=== PATIENT | female | born 1930 | race Caucasian/White ===

== ENCOUNTER 2019-09-14 11:50 | Inpatient (IN) | payer MEDICARE, OTHER ==
--- NOTE | 2019-09-14 12:12 | EDM.PDOC ---
ED HPI GENERAL MEDICAL PROBLEM - General Chief Complaint: Lower Extremity Injury/Pain Stated Complaint: [facility] Time Seen by Provider: 09/14/19 11:53 Source of Information: Reports: Patient History Limitations: Reports: No Limitations - History of Present Illness INITIAL COMMENTS - FREE TEXT/NARRATIVE: Patient is an 89-year-old female brought in by [facility] for right hip pain after a fall. Patient states that she was ambulating from one room to another and fell. She states she did hit her head. Initially she was able to walk on the extremity per group home report, however she shortly thereafter began to complain of severe right hip pain. She denies a loss of consciousness. She has had no previous orthopedic surgeries on that hip. Patient is not on a blood thinner. Right Hip Pain Score (Numeric/FACES): 10 Lower Back Pain Score (Numeric/FACES): 8 - Related Data Allergies Allergy/AdvReac Type Severity Reaction Status Date / Time No Known Allergies Allergy Verified 09/14/19 15:16 Home Meds: Home Meds Metoprolol Tartrate 50 mg PO BID 07/24/14 [History] Sertraline [Zoloft] 50 mg PO DAILY 07/24/14 [History] Mag Hydrox/Aluminum Hyd/Simeth [Antacid Liquid] 20 ml PO Q4H PRN 09/14/19 [ History] Melatonin 3 mg PO BEDTIME PRN 09/14/19 [History] amLODIPine [Norvasc] 5 mg PO DAILY 09/14/19 [History] Past Medical History HEENT History: Reports: Hard of Hearing Cardiovascular History: Reports: High Cholesterol, Hypertension Other Cardiovascular History: L BBB Gastrointestinal History: Reports: GERD Genitourinary History: Reports: Chronic Renal Insuffiency Psychiatric History: Reports: Dementia, Depression - Past Surgical History GI Surgical History: Reports: Other (See Below) Other Female Surgeries/Procedures: urostomy Social & Family History - Tobacco Use Smoking Status *Q: Unknown Ever Smoked Second Hand Smoke Exposure: No - Caffeine Use Caffeine Use: Reports: Coffee, Soda - Recreational Drug Use Recreational Drug Use: No Review of Systems - Review of Systems Review Of Systems: Comprehensive ROS is negative, except as noted in HPI. ED EXAM, GENERAL - Physical Exam Exam: See Below Exam Limited By: No Limitations General Appearance: Alert, WD/WN, No Apparent Distress Ears: Other (very heard of hearing.) Respiratory/Chest: No Respiratory Distress, Lungs Clear, Normal Breath Sounds, No Accessory Muscle Use, Chest Non-Tender Cardiovascular: Normal Peripheral Pulses, Regular Rate, Rhythm, No Edema, No Gallop, No JVD, No Murmur, No Rub (Female) Exam: Other (Urostomy right abdomen) Extremities: No Pedal Edema, Normal Capillary Refill, Other (Tenderness to palpation over the posterior right hip. No obvious deformity. No limb shortening or external rotation. No obvious ecchymosis. Range of motion limited due to pain.) Neurological: Alert, Oriented, CN II-XII Intact, Normal Cognition, No Motor/ Sensory Deficits Psychiatric: Normal Affect, Normal Mood Skin Exam: Warm, Dry, Intact, Normal Color, No Rash Course - Vital Signs Last Recorded V/S: Last Vital Signs Temp 97.5 F 09/14/19 20:20 Pulse 69 09/14/19 20:20 Resp 18 09/14/19 20:20 BP 127/73 09/14/19 20:20 Pulse Ox 92 L 09/14/19 20:20 - Orders/Labs/Meds Orders: Active Orders 24 hr Category Date Time Status Hip Min 2V or 3V w Pelvis Rt [CR] Stat Exams 09/14/19 12:07 Taken Hip wo Cont Rt [CT] Stat Exams 09/14/19 13:03 Taken Medication Orders Acetaminophen (Tylenol) 650 mg PO Q4H PRN PRN Reason: Pain (Mild 1-3)/fever Hydrocodone Bitart/Acetaminophen ([place] 325-5 Mg) 1 tab PO Q4H PRN PRN Reason: Pain (moderate 4-6) Last Admin: 09/14/19 16:57 Dose: 1 tab Enoxaparin Sodium (Lovenox) 30 mg SUBCUT DAILY MARK Hydromorphone HCl (Dilaudid) 0.25 mg IVPUSH Q2H PRN PRN Reason: Pain (severe 7-10) Ondansetron HCl (Zofran Odt) 4 mg PO Q4H PRN PRN Reason: nausea, able to take PO Senna/Docusate Sodium (Senna Plus) 1 tab PO BID PRN PRN Reason: Constipation Labs: Laboratory Tests 09/14/19 09/14/19 Range/Units 12:35 12:35 WBC 9.66 (3.98-10.04) K/mm3 RBC 4.83 (3.98-5.22) M/mm3 Hgb 15.3 (11.2-15.7) gm/dl Hct 46.7 H (34.1-44.9) % MCV 96.7 H D (79.4-94.8) fl MCH 31.7 (25.6-32.2) pg MCHC 32.8 (32.2-35.5) g/dl RDW Std Deviation 47.8 H (36.4-46.3) fL Plt Count 240 D (182-369) K/mm3 MPV 9.1 L (9.4-12.3) fl Neut % (Auto) 65.6 (34.0-71.1) % Lymph % (Auto) 14.4 L (19.3-51.7) % [place] % (Auto) 13.1 H (4.7-12.5) % Eos % (Auto) 6.3 H (0.7-5.8) Baso % (Auto) 0.4 (0.1-1.2) % Neut # (Auto) 6.33 H (1.56-6.13) K/mm3 Lymph # (Auto) 1.39 (1.18-3.74) K/mm3 [place] # (Auto) 1.27 H (0.24-0.36) K/mm3 Eos # (Auto) 0.61 H (0.04-0.36) K/mm3 Baso # (Auto) 0.04 (0.01-0.08) K/mm3 Sodium 141 (136-145) mEq/L Potassium 3.9 (3.5-5.1) mEq/L Chloride 105 (98-107) mEq/L Carbon Dioxide 25 (21-32) mEq/L Anion Gap 14.9 (5-15) BUN 23 H (7-18) mg/dL Creatinine 1.3 H (0.55-1.02) mg/dL Est Cr Clr Drug Dosing 25.83 mL/min Estimated GFR (MDRD) 39 (>60) mL/min BUN/Creatinine Ratio 17.7 (14-18) Glucose 91 (83-115) mg/dL Calcium 9.4 (8.5-10.1) mg/dL Total Bilirubin 0.4 (0.2-1.0) mg/dL AST 17 (15-37) U/L ALT 15 (14-59) U/L Alkaline Phosphatase 112 (46-116) U/L Total Protein 7.0 (6.4-8.2) g/dl Albumin 3.1 L (3.4-5.0) g/dl Globulin 3.9 gm/dL Albumin/Globulin Ratio 0.8 L (1-2) Meds: Medications Generic Name Dose Route Start Last Admin Trade Name Freq PRN Reason Stop Dose Admin Acetaminophen 650 mg 09/14/19 15:43 Tylenol PO Q4H PRN Pain (Mild 1-3)/fever Hydrocodone Bitart/Acetaminophen 1 tab 09/14/19 15:43 09/14/19 16:57 [place] 325-5 Mg PO 1 tab Q4H PRN Administration Pain (moderate 4-6) Enoxaparin Sodium 30 mg 09/15/19 09:00 Lovenox SUBCUT DAILY MARK Hydromorphone HCl 0.25 mg 09/14/19 15:43 Dilaudid IVPUSH Q2H PRN Pain (severe 7-10) Ondansetron HCl 4 mg 09/14/19 15:43 Zofran Odt PO Q4H PRN nausea, able to take PO Senna/Docusate Sodium 1 tab 09/14/19 15:43 Senna Plus PO BID PRN Constipation Discontinued Medications Generic Name Dose Route Start Last Admin Trade Name Frepatrice PRN Reason Stop Dose Admin Acetaminophen 650 mg 09/14/19 14:29 09/14/19 14:44 Tylenol PO 09/14/19 14:30 650 mg NOW ONE Administration Hydromorphone HCl 0.25 mg 09/14/19 13:51 09/14/19 14:00 Dilaudid IVPUSH 09/14/19 13:52 0.25 mg ONETIME ONE Administration - Re-Assessments/Exams Free Text/Narrative Re-Assessment/Exam: 09/14/19 14:25 CT of the head was negative for any acute changes. CT of the right hip showed degenerative changes, as well as mildly displaced and comminuted fracture within the right inferior pubic ramus. Additionally there is a minimally nondisplaced fracture suggested to the right superior pubic ramus near the acetabulum. CT was reviewed by Dr. Watson and myself we are questioning a possible slightly impacted right femoral neck fracture. Called [facility] and spoke with the on-call orthopedist, Dr. Al. He reviewed the CT images and stated these are stable fractures which required no surgical intervention. He verbalized that he did not see any suggestion of a impacted femoral neck fracture and attributed what we were seeing to bone spurs and osteophytes. He verbalized that she may be weightbearing as tolerated with pain management and PT OT. Called and spoke with the hospitalist, Dr. Maldonado. He will admit the patient for pain control and PT OT eval. Departure - Departure Time of Disposition: 14:25 Disposition: Admitted As Inpatient 67 Condition: Fair Clinical Impression: Pelvic fracture Qualifiers: Encounter type: initial encounter Pelvic bone location: other part of pelvis Fracture type: closed Qualified Code(s): S32.89XA - Fracture of other parts of pelvis, initial encounter for closed fracture - Discharge Information Sepsis Event Note - Evaluation Sepsis Screening Result: No Definite Risk - Focused Exam Vital Signs: Vital Signs Temp Pulse Resp BP Pulse Ox 09/14/19 11:56 99.6 F 61 17 191/79 H 91 L Date Exam was Performed: 09/14/19 Time Exam was Performed: 20:40 - My Orders Last 24 Hours: My Active Orders 09/14/19 12:07 Hip Min 2V or 3V w Pelvis Rt [CR] Stat 09/14/19 13:03 Hip wo Cont Rt [CT] Stat - Assessment/Plan Last 24 Hours: My Active Orders 09/14/19 12:07 Hip Min 2V or 3V w Pelvis Rt [CR] Stat 09/14/19 13:03 Hip wo Cont Rt [CT] Stat
--- NOTE | 2019-09-14 13:22 | CT ---
Head CT Technique: Multiple axial sections through the brain were obtained. Intravenous contrast was not utilized. Comparison: No prior intracranial imaging is available. Findings: Ventricles along with basal cisterns and sulci over the convexities are mildly prominent. Mild diminished density is noted within the periventricular white matter which is most likely due to small vessel ischemic demyelination change. No other abnormal parenchymal densities are seen. No evidence of intracranial hemorrhage. No midline shift or mass-effect is seen. Bone window settings were reviewed. No acute calvarial finding is seen. Hypoplastic left maxillary sinus is noted containing minimal mucosal thickening. Impression: 1. 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 2. Senescent change as noted above. 3. Nothing acute is appreciated. Diagnostic code #2 This report was dictated in MDT
[2019-09-14] MEDS ORDERED: HYDROmorphone 0.5 MG/0.5 ML Syringe IVPUSH ONE (13:51)
[2019-09-14] MEDS ORDERED: Acetaminophen 325 MG Tab PO ONE (14:29)
[2019-09-14] MEDS ORDERED: Ondansetron 4 MG Tab.DIS PO PRN (15:43)
[2019-09-14] MEDS ORDERED: Acetaminophen 325 MG Tab PO PRN (15:43)
[2019-09-14] MEDS ORDERED: HYDROmorphone 0.5 MG/0.5 ML Syringe IVPUSH PRN (15:43)
--- NOTE | 2019-09-14 15:53 | PCM.HP.2 ---
H&P History of Present Illness - General Date of Service: 09/14/19 Admit Problem/Dx: Admission Diagnosis/Problem Admission Diagnosis/Problem Fracture of pelvis - History of Present Illness Initial Comments - Free Text/Narative: 89-year-old female with history of severe hearing loss, hypertension, hyperlipidemia, left bundle branch block, GERD, chronic renal sufficiency, dementia, and depression was brought in from [facility] by ambulance after sustaining a fall this morning. Patient is extremely hard of hearing, therefore history was obtained through emergency department notes. Apparently patient was initially able to walk after the fall. She then started to complain of severe right hip pain. Patient also did hit her head during the fall. There was no loss of consciousness and she is not on any anticoagulation. In the emergency department pain was noted to be severe, [address] of the pelvis showed right hip with degenerative changes, mildly displaced and comminuted fracture within the right inferior pubic ramus, and minimally nondisplaced fracture suggested to the right superior pubic ramus. Emergency department called the on-call orthopedic surgeon, Dr. Al, who stated that these are stable fractures and she can proceed with weightbearing as tolerated, pain management, and PT/OT. Right Hip Pain Score (Numeric/FACES): 10 - Related Data Allergies/Adverse Reactions: Allergies Allergy/AdvReac Type Severity Reaction Status Date / Time No Known Allergies Allergy Verified 09/14/19 15:16 Home Medications: Home Meds Metoprolol Tartrate 50 mg PO BID 07/24/14 [History] Sertraline [Zoloft] 50 mg PO DAILY 07/24/14 [History] Mag Hydrox/Aluminum Hyd/Simeth [Antacid Liquid] 20 ml PO Q4H PRN 09/14/19 [ History] Melatonin 3 mg PO BEDTIME PRN 09/14/19 [History] amLODIPine [Norvasc] 5 mg PO DAILY 09/14/19 [History] Past Medical History HEENT History: Reports: Allergic Rhinitis, Hard of Hearing Cardiovascular History: Reports: High Cholesterol, Hypertension, Other (See Below) Other Cardiovascular History: left bundle branch block Respiratory History: Reports: Other (See Below) Other Respiratory History: hypoxemia Gastrointestinal History: Reports: GERD Genitourinary History: Reports: Chronic Renal Insuffiency, Urostomy, UTI, Recurrent Musculoskeletal History: Reports: Back Pain, Chronic, Other (See Below) Other Musculoskeletal History: weakness; current pelvic fracture Psychiatric History: Reports: Dementia, Depression, Other (See Below) Other Psychiatric History: insomnia Dermatologic History: Reports: Other (See Below) Other Dermatologic History: pruritic disorder - Past Surgical History GI Surgical History: Reports: Other (See Below) Other Female Surgeries/Procedures: urostomy Social & Family History - Family History Family Medical History: Noncontributory - Tobacco Use Smoking Status *Q: Never Smoker Second Hand Smoke Exposure: No - Caffeine Use Caffeine Use: Reports: None - Recreational Drug Use Recreational Drug Use: No H&P Review of Systems - Review of Systems: Review Of Systems: Unable To Obtain Reason Not Obtained: Severely hard of hearing Exam - Exam Exam: See Below - Vital Signs Vital Signs: Last Vital Signs Temp 99.6 F 09/14/19 11:56 Pulse 61 09/14/19 11:56 Resp 17 09/14/19 11:56 BP 191/79 H 09/14/19 11:56 Pulse Ox 91 L 09/14/19 11:56 Weight: 163 lb 9.6 oz - Exam Quality Assessment: No: Supplemental Oxygen General: Alert, Oriented, 4 HEENT: Conjunctiva Clear, Mucosa Moist & [place], Normal Nasal Septum. No: Hearing Intact Neck: Supple, Trachea Midline, 2 Lungs: Clear to Auscultation, Normal Respiratory Effort Cardiovascular: Regular Rate, Regular Rhythm GI/Abdominal Exam: Normal Bowel Sounds, Soft, Non-Tender, No Organomegaly, No Distention, No Abnormal Bruit, No Mass, Pelvis Stable Back Exam: Normal Inspection, Full Range of Motion, NT Extremities: Normal Inspection, Normal Capillary Refill, Pedal Edema (1+ bilateral pitting edema to the feet and ankles) Skin: Warm, Dry, Intact Neuro Extensive - Mental Status: Alert, Oriented x3, Normal Mood/Affect, Normal Cognition Neuro Extensive - Motor, Sensory, Reflexes: No: Normal Gait Psychiatric: Alert, Normal Affect, Normal Mood - Patient Data Lab Results Last 24 hrs: Laboratory Results - last 24 hr 09/14/19 09/14/19 Range/Units 12:35 12:35 WBC 9.66 (3.98-10.04) K/mm3 RBC 4.83 (3.98-5.22) M/mm3 Hgb 15.3 (11.2-15.7) gm/dl Hct 46.7 H (34.1-44.9) % MCV 96.7 H D (79.4-94.8) fl MCH 31.7 (25.6-32.2) pg MCHC 32.8 (32.2-35.5) g/dl RDW Std Deviation 47.8 H (36.4-46.3) fL Plt Count 240 D (182-369) K/mm3 MPV 9.1 L (9.4-12.3) fl Neut % (Auto) 65.6 (34.0-71.1) % Lymph % (Auto) 14.4 L (19.3-51.7) % [place] % (Auto) 13.1 H (4.7-12.5) % Eos % (Auto) 6.3 H (0.7-5.8) Baso % (Auto) 0.4 (0.1-1.2) % Neut # (Auto) 6.33 H (1.56-6.13) K/mm3 Lymph # (Auto) 1.39 (1.18-3.74) K/mm3 [place] # (Auto) 1.27 H (0.24-0.36) K/mm3 Eos # (Auto) 0.61 H (0.04-0.36) K/mm3 Baso # (Auto) 0.04 (0.01-0.08) K/mm3 Sodium 141 (136-145) mEq/L Potassium 3.9 (3.5-5.1) mEq/L Chloride 105 (98-107) mEq/L Carbon Dioxide 25 (21-32) mEq/L Anion Gap 14.9 (5-15) BUN 23 H (7-18) mg/dL Creatinine 1.3 H (0.55-1.02) mg/dL Est Cr Clr Drug Dosing 25.83 mL/min Estimated GFR (MDRD) 39 (>60) mL/min BUN/Creatinine Ratio 17.7 (14-18) Glucose 91 (83-115) mg/dL Calcium 9.4 (8.5-10.1) mg/dL Total Bilirubin 0.4 (0.2-1.0) mg/dL AST 17 (15-37) U/L ALT 15 (14-59) U/L Alkaline Phosphatase 112 (46-116) U/L Total Protein 7.0 (6.4-8.2) g/dl Albumin 3.1 L (3.4-5.0) g/dl Globulin 3.9 gm/dL Albumin/Globulin Ratio 0.8 L (1-2) Result Diagrams: 09/14/19 12:35 09/14/19 12:35 Sepsis Event Note - Evaluation Sepsis Screening Result: No Definite Risk - Focused Exam Vital Signs: Vital Signs Temp Pulse Resp BP Pulse Ox 09/14/19 11:56 99.6 F 61 17 191/79 H 91 L Date Exam was Performed: 09/14/19 Time Exam was Performed: 15:48 Problem List Initiated/Reviewed/Updated: Yes Orders Last 24hrs: Active Orders 24 hr Category Date Time Status Patient Status [ADT] Routine ADT 09/14/19 14:30 Active Oxygen Therapy [RC] PRN Care 09/14/19 15:43 Ordered Up With Assistance [RC] ASDIRECTED Care 09/14/19 15:43 Ordered VTE/DVT Education [RC] PER UNIT ROUTINE Care 09/14/19 15:43 Ordered Vital Signs [RC] Q4H Care 09/14/19 15:43 Ordered OT Evaluation and Treatment [CONS] Routine Cons 09/14/19 15:47 Ordered PT Evaluation and Treatment [CONS] Routine Cons 09/14/19 15:47 Ordered Regular Diet [DIET] Diet 09/14/19 Dinner Ordered Hip Min 2V or 3V w Pelvis Rt [CR] Stat Exams 09/14/19 12:07 Taken Hip wo Cont Rt [CT] Stat Exams 09/14/19 13:03 Taken METH-RESIST S.AUR,MRSA BY PCR [MOLEC] Routine Lab 09/14/19 15:15 Received Acetaminophen [Tylenol] Med 09/14/19 15:43 Ordered 650 mg PO Q4H PRN Acetaminophen/HYDROcodone [[place] 325-5 MG] Med 09/14/19 15:43 Ordered 1 tab PO Q4H PRN Docusate Sodium/Sennosides [Senna Plus] Med 09/14/19 15:43 Ordered 1 tab PO BID PRN Enoxaparin [Lovenox] Med 09/15/19 09:00 Ordered 40 mg SUBCUT DAILY HYDROmorphone [Dilaudid] Med 09/14/19 15:43 Ordered 0.25 mg IVPUSH Q2H PRN Ondansetron [Zofran ODT] Med 09/14/19 15:43 Ordered 4 mg PO Q4H PRN Resuscitation Status Routine Resus Stat 09/14/19 15:43 Ordered Medication Orders Acetaminophen (Tylenol) 650 mg PO Q4H PRN PRN Reason: Pain (Mild 1-3)/fever Hydrocodone Bitart/Acetaminophen ([place] 325-5 Mg) 1 tab PO Q4H PRN PRN Reason: Pain (moderate 4-6) Enoxaparin Sodium (Lovenox) 40 mg SUBCUT DAILY MARK Hydromorphone HCl (Dilaudid) 0.25 mg IVPUSH Q2H PRN PRN Reason: Pain (severe 7-10) Ondansetron HCl (Zofran Odt) 4 mg PO Q4H PRN PRN Reason: nausea, able to take PO Senna/Docusate Sodium (Senna Plus) 1 tab PO BID PRN PRN Reason: Constipation Assessment/Plan Comment:: Stable pelvic fracture * CT confirmed: Mildly displaced and comminuted fracture within the right inferior pubic ramus. Minimally nondisplaced fracture suggested to the right superior pubic ramus near the acetabulum. * On-call orthopedist, Dr. Al, recommended weightbearing as tolerated, pain management, PT and OT Plan * weightbearing as tolerated, pain management, PT and OT * Tylenol, [place], Dilaudid for pain. Stage III chronic renal insufficiency * Estimated GFR 39 * BUN 23, creatinine 1.3 which is stable over several years Plan * Avoid nephrotoxic medications especially NSAIDs * Restart home blood pressure medications Hypertension * Initial blood pressure 191/79 likely worsened by pain * Home meds include amlodipine 5 mg daily and metoprolol tartrate 50 mg twice daily Plan * Continue home meds Depression/dementia/insomnia * Patient is very hard of hearing which is likely worsening the above. * She is on sertraline at home. Plan * Continue sertraline 50 mg daily * Continue melatonin 3 mg nightly Severe hearing loss * Use whiteboard as needed. VTE prophylaxis with Lovenox CODE STATUS: Full code Disposition: Admit to floor. We do not have physical therapy available until Monday, therefore length of stay will be 3 to 4 days. - Mortality Measure Prognosis:: Good
[2019-09-14] MEDS: Acetaminophen/HYDROcodone 325-5 MG Tab PO PRN (16:57)
[2019-09-14] MEDS ORDERED: Melatonin 3 MG Tab PO PRN (22:11)
[2019-09-14] MEDS ORDERED: Aluminum Hydroxide/Magnesium Hydroxide/Simethicone Susp 30 ML Cup PO PRN (22:19)
[2019-09-14] MEDS: Metoprolol Tartrate 50 MG Tab PO SCH (22:24)
[2019-09-14] MEDS: Loratadine 10 MG Tab PO SCH (22:24)
--- NOTE | 2019-09-15 07:23 | CT ---
CT right hip Technique: Multiple axial sections through the right hip were obtained. Reconstructed coronal and sagittal images were obtained. Findings: Joint space narrowing is noted within the right hip. Osteophytes are noted off the right femoral neck. Vacuum phenomena is noted within the right sacroiliac joint. Mildly displaced and slightly comminuted inferior right pubic ramus fracture is noted. Nondisplaced fracture is also suspected within the superior pubic ramus near the acetabulum. Degenerative spurring is noted within the pubic symphysis. Impression: 1. Degenerative change within the right hip. 2. Mildly displaced and comminuted fracture within the inferior right pubic ramus. Minimal nondisplaced fracture suggested to the superior right pubic ramus near the acetabulum. 3. Other degenerative change as noted above. Diagnostic code #3 This report was dictated in MDT MTDD
[2019-09-15] MEDS: Enoxaparin 30 MG/0.3 ML Syringe SUBCUT SCH (08:37)
[2019-09-15] MEDS: Acetaminophen/HYDROcodone 325-5 MG Tab PO PRN ×2 (08:39→17:24)
[2019-09-15] MEDS: Metoprolol Tartrate 50 MG Tab PO SCH ×2 (08:40→20:44)
[2019-09-15] MEDS: amLODIPine 5 MG Tab PO SCH (08:40)
[2019-09-15] MEDS: Sertraline 50 MG Tab PO SCH (08:40)
--- NOTE | 2019-09-15 09:37 | PCM.PN ---
- General Info Date of Service: 09/15/19 Admission Dx/Problem (Free Text): Admission Diagnosis/Problem Admission Diagnosis/Problem Fracture of pelvis Subjective Update: Patient continues to have pelvic and right hip pain. Physical therapy is scheduled for today. Functional Status: Denies: Pain Controlled - Review of Systems General: Reports: No Symptoms HEENT: Reports: No Symptoms Pulmonary: Reports: No Symptoms Cardiovascular: Reports: No Symptoms Gastrointestinal: Reports: No Symptoms Genitourinary: Reports: No Symptoms Musculoskeletal: Reports: Back Pain, Other (Pelvic pain) Neurological: Reports: No Symptoms - Patient Data Vitals - Most Recent: Last Vital Signs Temp 97.3 F 09/15/19 07:51 Pulse 58 L 09/15/19 08:40 Resp 20 09/15/19 07:51 BP 137/49 L 09/15/19 08:40 Pulse Ox 96 09/15/19 07:51 Weight - Most Recent: 164 lb 8 oz I&O - Last 24 Hours: Intake & Output 09/14/19 09/15/19 09/15/19 22:59 06:59 14:59 Intake Total 100 Output Total 450 Balance -350 Lab Results Last 24 Hours: Laboratory Results - last 24 hr 09/14/19 09/14/19 09/14/19 Range/Units 12:35 12:35 15:15 WBC 9.66 (3.98-10.04) K/mm3 RBC 4.83 (3.98-5.22) M/mm3 Hgb 15.3 (11.2-15.7) gm/dl Hct 46.7 H (34.1-44.9) % MCV 96.7 H D (79.4-94.8) fl MCH 31.7 (25.6-32.2) pg MCHC 32.8 (32.2-35.5) g/dl RDW Std Deviation 47.8 H (36.4-46.3) fL Plt Count 240 D (182-369) K/mm3 MPV 9.1 L (9.4-12.3) fl Neut % (Auto) 65.6 (34.0-71.1) % Lymph % (Auto) 14.4 L (19.3-51.7) % [place] % (Auto) 13.1 H (4.7-12.5) % Eos % (Auto) 6.3 H (0.7-5.8) Baso % (Auto) 0.4 (0.1-1.2) % Neut # (Auto) 6.33 H (1.56-6.13) K/mm3 Lymph # (Auto) 1.39 (1.18-3.74) K/mm3 [place] # (Auto) 1.27 H (0.24-0.36) K/mm3 Eos # (Auto) 0.61 H (0.04-0.36) K/mm3 Baso # (Auto) 0.04 (0.01-0.08) K/mm3 Sodium 141 (136-145) mEq/L Potassium 3.9 (3.5-5.1) mEq/L Chloride 105 (98-107) mEq/L Carbon Dioxide 25 (21-32) mEq/L Anion Gap 14.9 (5-15) BUN 23 H (7-18) mg/dL Creatinine 1.3 H (0.55-1.02) mg/dL Est Cr Clr Drug Dosing 25.83 mL/min Estimated GFR (MDRD) 39 (>60) mL/min BUN/Creatinine Ratio 17.7 (14-18) Glucose 91 (83-115) mg/dL Calcium 9.4 (8.5-10.1) mg/dL Total Bilirubin 0.4 (0.2-1.0) mg/dL AST 17 (15-37) U/L ALT 15 (14-59) U/L Alkaline Phosphatase 112 (46-116) U/L Total Protein 7.0 (6.4-8.2) g/dl Albumin 3.1 L (3.4-5.0) g/dl Globulin 3.9 gm/dL Albumin/Globulin Ratio 0.8 L (1-2) MRSA (PCR) Negative Med Orders - Current: Current Medications Acetaminophen (Tylenol) 650 mg PO Q4H PRN PRN Reason: Pain (Mild 1-3)/fever Hydrocodone Bitart/Acetaminophen ([place] 325-5 Mg) 1 tab PO Q4H PRN PRN Reason: Pain (moderate 4-6) Last Admin: 09/15/19 08:39 Dose: 1 tab Al Hydroxide/Mg Hydroxide (Mag-Al Plus) 20 ml PO Q4H PRN PRN Reason: Heartburn Amlodipine Besylate (Norvasc) 5 mg PO DAILY [facility] Last Admin: 09/15/19 08:40 Dose: 5 mg Enoxaparin Sodium (Lovenox) 30 mg SUBCUT DAILY [facility] Last Admin: 09/15/19 08:37 Dose: 30 mg Hydromorphone HCl (Dilaudid) 0.25 mg IVPUSH Q2H PRN PRN Reason: Pain (severe 7-10) Loratadine (Claritin) 10 mg PO BEDTIME [facility] Last Admin: 09/14/19 22:24 Dose: 10 mg Melatonin (Melatonin) 3 mg PO BEDTIME PRN PRN Reason: Insomnia Metoprolol Tartrate (Lopressor) 50 mg PO BID [facility] Last Admin: 09/15/19 08:40 Dose: 50 mg Ondansetron HCl (Zofran Odt) 4 mg PO Q4H PRN PRN Reason: nausea, able to take PO Senna/Docusate Sodium (Senna Plus) 1 tab PO BID PRN PRN Reason: Constipation Sertraline HCl (Zoloft) 50 mg PO DAILY [facility] Last Admin: 09/15/19 08:40 Dose: 50 mg Discontinued Medications Acetaminophen (Tylenol) 650 mg PO NOW ONE Stop: 09/14/19 14:30 Last Admin: 09/14/19 14:44 Dose: 650 mg Hydromorphone HCl (Dilaudid) 0.25 mg IVPUSH ONETIME ONE Stop: 09/14/19 13:52 Last Admin: 09/14/19 14:00 Dose: 0.25 mg - Exam General: Alert, Oriented HEENT: Pupils Equal, Mucous Membr. Moist/[place] Neck: Supple Lungs: Clear to Auscultation, Normal Respiratory Effort Cardiovascular: Regular Rate, Regular Rhythm GI/Abdominal Exam: Normal Bowel Sounds, Soft, Non-Tender, No Organomegaly, No Distention, No Abnormal Bruit, No Mass Extremities: Normal Inspection, Non-Tender, No Pedal Edema Peripheral Pulses: 1+: Posterior Tibial (L), Posterior Tibial (R), Dorsalis Pedis (L), Dorsalis Pedis (R) Skin: Warm, Dry, Intact Psy/Mental Status: Alert, Normal Affect, Normal Mood Sepsis Event Note - Evaluation Sepsis Screening Result: No Definite Risk - Focused Exam Vital Signs: Vital Signs Temp Pulse Resp BP Pulse Ox 09/15/19 08:40 58 L 137/49 L 09/15/19 07:51 97.3 F 58 L 20 96 09/15/19 05:06 177/61 H 09/15/19 04:11 97.9 F 63 18 182/96 H 95 09/14/19 22:29 60 148/55 H 92 L 09/14/19 22:24 61 148/55 H Date Exam was Performed: 09/15/19 Time Exam was Performed: 09:32 - Problem List Review Problem List Initiated/Reviewed/Updated: Yes - My Orders Last 24 Hours: My Active Orders 09/14/19 15:43 Oxygen Therapy [RC] PRN Up With Assistance [RC] BID VTE/DVT Education [RC] DAILY Vital Signs [RC] Q4HR Acetaminophen [Tylenol] 650 mg PO Q4H PRN Acetaminophen/HYDROcodone [[place] 325-5 MG] 1 tab PO Q4H PRN Docusate Sodium/Sennosides [Senna Plus] 1 tab PO BID PRN HYDROmorphone [Dilaudid] 0.25 mg IVPUSH Q2H PRN Ondansetron [Zofran ODT] 4 mg PO Q4H PRN Resuscitation Status Routine 09/14/19 15:47 OT Evaluation and Treatment [CONS] Routine PT Evaluation and Treatment [CONS] Routine 09/14/19 21:00 Loratadine [Claritin] 10 mg PO BEDTIME 09/14/19 22:11 Melatonin 3 mg PO BEDTIME PRN 09/14/19 22:15 Metoprolol Tartrate [Lopressor] 50 mg PO BID 09/14/19 22:19 Alum Hydrox/Mag Hydrox/Simeth [Mag-Al Plus] 20 ml PO Q4H PRN 09/14/19 Dinner Regular Diet [DIET] 09/15/19 07:49 Weight bearing status [OM.PC] Routine 09/15/19 09:00 Enoxaparin [Lovenox] 30 mg SUBCUT DAILY Sertraline [Zoloft] 50 mg PO DAILY amLODIPine [Norvasc] 5 mg PO DAILY - Plan Plan:: Stable pelvic fracture * CT confirmed: Mildly displaced and comminuted fracture within the right inferior pubic ramus. Minimally nondisplaced fracture suggested to the right superior pubic ramus near the acetabulum. * On-call orthopedist, Dr. Al, recommended weightbearing as tolerated, pain management, PT and OT * Not requiring Dilaudid. * Only needing [place] Plan * weightbearing as tolerated, pain management, PT and OT * Tylenol, [place], Dilaudid for pain. * Physical therapy to start today Stage III chronic renal insufficiency * Estimated GFR 39 * BUN 23, creatinine 1.3 which is stable over several years Plan * Avoid nephrotoxic medications especially NSAIDs * Restart home blood pressure medications Hypertension * Initial blood pressure 191/79 likely worsened by pain. Blood pressure better controlled this morning. * Home meds include amlodipine 5 mg daily and metoprolol tartrate 50 mg twice daily Plan * Continue home meds Depression/dementia/insomnia * Patient is very hard of hearing which is likely worsening the above. * She is on sertraline at home. Plan * Continue sertraline 50 mg daily * Continue melatonin 3 mg nightly Severe hearing loss * Use whiteboard as needed. VTE prophylaxis with Lovenox CODE STATUS: Full code Disposition: Admit to floor. We do not have physical therapy available until Monday, therefore length of stay will be 3 to 4 days.
--- NOTE | 2019-09-15 13:33 | CR ---
Pelvis and right hip: AP view of the pelvis was obtained as well as AP and crosstable lateral views of the right hip. Slight deformity is seen within the inferior right pubic ramus compatible with fracture. No additional fracture is seen on this exam. Degenerative change is noted within the visualized lower lumbar spine. Joint space narrowing is seen within both hips, worse on the left side. Surgical clips are seen within the pelvis. Vascular calcification is noted. Impression: 1. Fracture within the inferior right pubic ramus. 2. Degenerative change, osteopenia and other nonacute findings as noted above. Diagnostic code #3 This report was dictated in MDT
[2019-09-15] MEDS: Loratadine 10 MG Tab PO SCH (20:44)
[2019-09-16] MEDS: Acetaminophen/HYDROcodone 325-5 MG Tab PO PRN ×4 (05:22→23:45)
[2019-09-16] MEDS: Sertraline 50 MG Tab PO SCH (08:16)
[2019-09-16] MEDS: amLODIPine 5 MG Tab PO SCH (08:16)
[2019-09-16] MEDS: Enoxaparin 30 MG/0.3 ML Syringe SUBCUT SCH (08:18)
--- NOTE | 2019-09-16 09:30 | PCM.PN ---
- General Info Date of Service: 09/16/19 Admission Dx/Problem (Free Text): Admission Diagnosis/Problem Admission Diagnosis/Problem Fracture of pelvis Functional Status: Reports: Pain Controlled, Tolerating Diet, Ambulating, Urinating. Denies: New Symptoms, Incentive Spirometry - Review of Systems General: Reports: Weakness. Denies: Fever, Fatigue, Malaise, Chills HEENT: Reports: Other (Hard of hearing ). Denies: Headaches, Sore Throat Pulmonary: Reports: No Symptoms. Denies: Shortness of Breath, Cough Cardiovascular: Reports: No Symptoms. Denies: Chest Pain, Palpitations, Dyspnea on Exertion, Edema Gastrointestinal: Reports: No Symptoms. Denies: Abdominal Pain, Constipation, Diarrhea, Nausea, Vomiting Genitourinary: Reports: No Symptoms. Denies: Pain Musculoskeletal: Reports: Joint Pain (right hip) Skin: Reports: No Symptoms Neurological: Reports: Difficulty Walking, Weakness, Gait Disturbance. Denies: Numbness, Tingling, Trouble Speaking Psychiatric: Reports: No Symptoms - Patient Data Vitals - Most Recent: Last Vital Signs Temp 97.7 F 09/16/19 08:13 Pulse 55 L 09/16/19 08:13 Resp 18 09/16/19 08:13 BP 147/58 H 09/16/19 08:16 Pulse Ox 90 L 09/16/19 08:13 Weight - Most Recent: 162 lb 14.4 oz I&O - Last 24 Hours: Intake & Output 09/15/19 09/16/19 09/16/19 22:59 06:59 14:59 Intake Total 580 375 Output Total 600 650 Balance -20 -275 Lab Results Last 24 Hours: Laboratory Results - last 24 hr 09/15/19 Range/Units 16:09 SARS-CoV-2 RNA (RT-PCR) Negative (NEGATIVE) Med Orders - Current: Current Medications Acetaminophen (Tylenol) 650 mg PO Q4H PRN PRN Reason: Pain (Mild 1-3)/fever Last Admin: 09/16/19 08:15 Dose: 650 mg Hydrocodone Bitart/Acetaminophen ([place] 325-5 Mg) 1 tab PO Q4H PRN PRN Reason: Pain (moderate 4-6) Last Admin: 09/16/19 05:22 Dose: 1 tab Al Hydroxide/Mg Hydroxide (Mag-Al Plus) 20 ml PO Q4H PRN PRN Reason: Heartburn Amlodipine Besylate (Norvasc) 5 mg PO DAILY [facility] Last Admin: 09/16/19 08:16 Dose: 5 mg Enoxaparin Sodium (Lovenox) 30 mg SUBCUT DAILY [facility] Last Admin: 09/16/19 08:18 Dose: 30 mg Hydromorphone HCl (Dilaudid) 0.25 mg IVPUSH Q2H PRN PRN Reason: Pain (severe 7-10) Last Admin: 09/15/19 12:12 Dose: 0.25 mg Loratadine (Claritin) 10 mg PO BEDTIME [facility] Last Admin: 09/15/19 20:44 Dose: 10 mg Melatonin (Melatonin) 3 mg PO BEDTIME PRN PRN Reason: Insomnia Last Admin: 09/15/19 20:45 Dose: 3 mg Metoprolol Tartrate (Lopressor) 50 mg PO BID [facility] Last Admin: 09/15/19 20:44 Dose: 50 mg Ondansetron HCl (Zofran Odt) 4 mg PO Q4H PRN PRN Reason: nausea, able to take PO Senna/Docusate Sodium (Senna Plus) 1 tab PO BID [facility] Last Admin: 09/16/19 08:16 Dose: 1 tab Sertraline HCl (Zoloft) 50 mg PO DAILY [facility] Last Admin: 09/16/19 08:16 Dose: 50 mg Discontinued Medications Acetaminophen (Tylenol) 650 mg PO NOW ONE Stop: 09/14/19 14:30 Last Admin: 09/14/19 14:44 Dose: 650 mg Hydromorphone HCl (Dilaudid) 0.25 mg IVPUSH ONETIME ONE Stop: 09/14/19 13:52 Last Admin: 09/14/19 14:00 Dose: 0.25 mg Senna/Docusate Sodium (Senna Plus) 1 tab PO BID PRN PRN Reason: Constipation - Exam Quality Assessment: DVT Prophylaxis General: Alert, Oriented, Cooperative, No Acute Distress HEENT: Pupils Equal, Pupils Reactive, Mucous Membr. Moist/[place] Neck: Supple, Trachea Midline Lungs: Clear to Auscultation, Normal Respiratory Effort Cardiovascular: Regular Rate, Regular Rhythm GI/Abdominal Exam: Normal Bowel Sounds, Soft, Non-Tender, No Distention (Female) Exam: Deferred Back Exam: Normal Inspection, Full Range of Motion Extremities: Normal Inspection, Normal Range of Motion, Non-Tender, No Pedal Edema, Normal Capillary Refill Skin: Warm, Dry, Intact Neurological: No New Focal Deficit Psy/Mental Status: Alert, Normal Affect, Normal Mood Sepsis Event Note - Evaluation Sepsis Screening Result: No Definite Risk - Focused Exam Vital Signs: Vital Signs Temp Pulse Resp BP Pulse Ox 09/16/19 08:16 147/58 H 09/16/19 08:13 97.7 F 55 L 18 147/58 H 90 L 09/16/19 05:01 61 93 L 09/16/19 05:00 98.1 F 62 13 147/47 H 91 L Date Exam was Performed: 09/16/19 Time Exam was Performed: 10:58 - Problem List & Annotations (1) Pelvic fracture SNOMED Code(s): 44015971 Code(s): S32.9XXA - FRACTURE OF UNSP PARTS OF LUMBOSACRAL SPINE AND PELVIS, INIT Status: Acute Priority: High Current Visit: Yes Qualifiers: Encounter type: initial encounter Pelvic bone location: other part of pelvis Fracture type: closed Qualified Code(s): S32.89XA - Fracture of other parts of pelvis, initial encounter for closed fracture (2) Fall SNOMED Code(s): 4172211, 782044613 Code(s): W19.XXXA - UNSPECIFIED FALL, INITIAL ENCOUNTER Status: Acute Priority: High Current Visit: Yes Qualifiers: Encounter type: initial encounter Qualified Code(s): W19.XXXA - Unspecified fall, initial encounter (3) Hard of hearing SNOMED Code(s): 16510521 Code(s): H91.90 - UNSPECIFIED HEARING LOSS, UNSPECIFIED EAR Status: Acute Current Visit: Yes (4) HLD (hyperlipidemia) SNOMED Code(s): 19309911 Code(s): E78.5 - HYPERLIPIDEMIA, UNSPECIFIED Status: Acute Current Visit : Yes (5) HTN (hypertension) SNOMED Code(s): 16533083 Code(s): I10 - ESSENTIAL (PRIMARY) HYPERTENSION Status: Acute Current Visit: Yes (6) LBBB (left bundle branch block) SNOMED Code(s): 11469266 Code(s): I44.7 - LEFT BUNDLE-BRANCH BLOCK, UNSPECIFIED Status: Acute Current Visit: Yes (7) GERD (gastroesophageal reflux disease) SNOMED Code(s): 096887168 Code(s): K21.9 - GASTRO-ESOPHAGEAL REFLUX DISEASE WITHOUT ESOPHAGITIS Status: Acute Current Visit: Yes (8) CKD (chronic kidney disease) SNOMED Code(s): 270670931 Code(s): N18.9 - CHRONIC KIDNEY DISEASE, UNSPECIFIED Status: Acute Current Visit: Yes (9) Dementia SNOMED Code(s): 65666522 Code(s): F03.90 - UNSPECIFIED DEMENTIA WITHOUT BEHAVIORAL DISTURBANCE Status: Acute Current Visit: Yes (10) Depression SNOMED Code(s): 92653601 Code(s): F32.9 - MAJOR DEPRESSIVE DISORDER, SINGLE EPISODE, UNSPECIFIED Status: Acute Current Visit: Yes - Problem List Review Problem List Initiated/Reviewed/Updated: Yes - Plan Plan:: Stable pelvic fracture * CT confirmed: Mildly displaced and comminuted fracture within the right inferior pubic ramus. Minimally nondisplaced fracture suggested to the right superior pubic ramus near the acetabulum. * On-call orthopedist, Dr. Al, recommended weightbearing as tolerated, pain management, PT and OT * Not requiring Dilaudid. * Only needing [place] Plan * Weightbearing as tolerated, pain management, PT and OT * Tylenol, [place], Dilaudid for pain. * Continue PT/OT * Consult for help with SNF return Stage III chronic renal insufficiency * Estimated GFR 39 * BUN 23, creatinine 1.3 which is stable over several years Plan * Avoid nephrotoxic medications especially NSAIDs * Restart home blood pressure medications Hypertension * Initial blood pressure 191/79 likely worsened by pain. Blood pressure better controlled this morning. * Home meds include amlodipine 5 mg daily and metoprolol tartrate 50 mg twice daily Plan * Continue home meds Depression/dementia/insomnia * Patient is very hard of hearing which is likely worsening the above. * She is on sertraline at home. Plan * Continue sertraline 50 mg daily * Continue melatonin 3 mg nightly Severe hearing loss * Use whiteboard as needed. VTE prophylaxis with Lovenox CODE STATUS: Full code Disposition: Admit to floor. We do not have physical therapy available until Monday, therefore length of stay will be 3 to 4 days. Likely discharge 09/17/19 back to SNF.
[2019-09-16] MEDS: Metoprolol Tartrate 50 MG Tab PO SCH ×2 (12:42→20:43)
[2019-09-16] MEDS: Loratadine 10 MG Tab PO SCH (20:44)
[2019-09-17] MEDS: Acetaminophen/HYDROcodone 325-5 MG Tab PO PRN ×2 (06:45→10:38)
--- NOTE | 2019-09-17 07:13 | PCM.DCSUM1 ---
Discharge Summary - Hospital Course HPI Initial Comments: 89-year-old female with history of severe hearing loss, hypertension, hyperlipidemia, left bundle branch block, GERD, chronic renal sufficiency, dementia, and depression was brought in from [facility] by ambulance after sustaining a fall this morning. Patient is extremely hard of hearing, therefore history was obtained through emergency department notes. Apparently patient was initially able to walk after the fall. She then started to complain of severe right hip pain. Patient also did hit her head during the fall. There was no loss of consciousness and she is not on any anticoagulation. In the emergency department pain was noted to be severe, [address] of the pelvis showed right hip with degenerative changes, mildly displaced and comminuted fracture within the right inferior pubic ramus, and minimally nondisplaced fracture suggested to the right superior pubic ramus. Emergency department called the on-call orthopedic surgeon, Dr. Al, who stated that these are stable fractures and she can proceed with weightbearing as tolerated, pain management, and PT/OT. Diagnosis: Stroke: No - Discharge Data Discharge Date: 09/17/19 (Admit date: 09/14/19) Discharge Disposition: DC/Tfer to SNF 03 Condition: Good - Referral to Home Health Primary Care Physician: Claudy Mac MD - Discharge Diagnosis/Problem(s) (1) Pelvic fracture SNOMED Code(s): 07181853 ICD Code: S32.9XXA - FRACTURE OF UNSP PARTS OF LUMBOSACRAL SPINE AND PELVIS, INIT Status: Acute Priority: High Current Visit: Yes Qualifiers: Encounter type: initial encounter Pelvic bone location: other part of pelvis Fracture type: closed Qualified Code(s): S32.89XA - Fracture of other parts of pelvis, initial encounter for closed fracture (2) Fall SNOMED Code(s): 3193033, 020806025 ICD Code: W19.XXXA - UNSPECIFIED FALL, INITIAL ENCOUNTER Status: Acute Priority: High Current Visit: Yes Qualifiers: Encounter type: initial encounter Qualified Code(s): W19.XXXA - Unspecified fall, initial encounter (3) Hard of hearing SNOMED Code(s): 35406433 ICD Code: H91.90 - UNSPECIFIED HEARING LOSS, UNSPECIFIED EAR Status: Chronic Priority: Medium Current Visit: Yes Qualifiers: Hearing loss type: unspecified Laterality: unspecified laterality Qualified Code(s): H91.90 - Unspecified hearing loss, unspecified ear (4) HLD (hyperlipidemia) SNOMED Code(s): 45702217 ICD Code: E78.5 - HYPERLIPIDEMIA, UNSPECIFIED Status: Chronic Priority: Low Current Visit: No Qualifiers: Hyperlipidemia type: unspecified Qualified Code(s): E78.5 - Hyperlipidemia , unspecified (5) HTN (hypertension) SNOMED Code(s): 17159597 ICD Code: I10 - ESSENTIAL (PRIMARY) HYPERTENSION Status: Chronic Priority : Low Current Visit: No Qualifiers: Hypertension type: unspecified Qualified Code(s): I10 - Essential (primary ) hypertension (6) LBBB (left bundle branch block) SNOMED Code(s): 01037805 ICD Code: I44.7 - LEFT BUNDLE-BRANCH BLOCK, UNSPECIFIED Status: Chronic Priority: Low Current Visit: No (7) GERD (gastroesophageal reflux disease) SNOMED Code(s): 978436476 ICD Code: K21.9 - GASTRO-ESOPHAGEAL REFLUX DISEASE WITHOUT ESOPHAGITIS Status: Chronic Priority: Low Current Visit: No Qualifiers: Esophagitis presence: esophagitis presence not specified Qualified Code(s) : K21.9 - Gastro-esophageal reflux disease without esophagitis (8) CKD (chronic kidney disease) SNOMED Code(s): 340082005 ICD Code: N18.9 - CHRONIC KIDNEY DISEASE, UNSPECIFIED Status: Chronic Priority: Low Current Visit: No Qualifiers: Chronic kidney disease stage: unspecified stage Qualified Code(s): N18.9 - Chronic kidney disease, unspecified (9) Dementia SNOMED Code(s): 52798897 ICD Code: F03.90 - UNSPECIFIED DEMENTIA WITHOUT BEHAVIORAL DISTURBANCE Status: Chronic Priority: Low Current Visit: No Qualifiers: Dementia type: unspecified type Dementia behavioral disturbance: without behavioral disturbance Qualified Code(s): F03.90 - Unspecified dementia without behavioral disturbance (10) Depression SNOMED Code(s): 25173329 ICD Code: F32.9 - MAJOR DEPRESSIVE DISORDER, SINGLE EPISODE, UNSPECIFIED Status: Chronic Priority: Low Current Visit: No Qualifiers: Depression Type: other depression Qualified Code(s): F32.89 - Other specified depressive episodes - Patient Summary/Data Consults: Consultations 05/09/20 15:47 OT Evaluation and Treatment [CONS] Routine PT Evaluation and Treatment [CONS] Routine 09/16/19 09:31 Consult to Case Management/[place] [CONS] Routine Labs Pending at D/C: None Recommended Follow-up Testing/Procedures: Follow-up with primary care provider within 7-10 days of discharge. Follow-up with orthopedics within 14 days of discharge. Hospital Course: Emani Villanueva was admitted to the floor secondary to a fall at [facility] resulting in a right-sided pelvic fracture. Labs and vital signs were stable. Orthopedic surgeon was consulted through the ED who recommended weight-bear as tolerated. Patient did work with PT/OT and it is recommended this continue when she returns back to [place]. Good oral intake and pain was well controlled with Martin. She has been up ambulating. Home medications were continued, with the exception of her metoprolol - which was decreased from 50mg BID to 25mg BID. She will be discharged on every 4 hour Martin PRN and every 4 hour acetaminophen as needed. She was directed to wean down on Martin use as tolerable and also attempt to transition to Tylenol if pain is not too severe. She was started on 81mg ASA. She should follow-up with her primary care provider within 7 to 10 days of discharge. She should see orthopedic surgery within 14 days of discharge. Overall she did well and will be discharged back to [facility] today. - Patient Instructions Diet: Usual Diet as Tolerated Activity: As Tolerated, Full Weight Bearing Activity, Other: As tolerated Driving: Do Not Drive Showering/Bathing: May Shower Notify Provider of: Fever, Increased Pain, Nausea and/or Vomiting (Severe pain ) Other/Special Instructions: Follow-up with primary care provider within 7-10 days of discharge. Follow-up with orthopedics within 14 days. Take norco as needed for pain. Try to wean down this as symptoms improve. If pain is not too severe take just the tylenol instead. You were prescribed Senna for bowel maintence. Take this twice a day. You can consider stopping this as you wean of of your norco. Continue PT/OT at SNF. Should symptoms return or worsen, contact primary care provider or return to the emergency department. - Discharge Plan *PRESCRIPTION DRUG MONITORING PROGRAM REVIEWED*: No *COPY OF PRESCRIPTION DRUG MONITORING REPORT IN PATIENT ELVIRA: No Prescriptions/Med Rec: Acetaminophen [Tylenol] 650 mg PO Q4H PRN #30 tablet PRN Reason: Pain (Mild 1-3)/fever Acetaminophen/HYDROcodone [Martin 325-5 MG] 1 tab PO Q4H PRN #30 tablet PRN Reason: Pain (Moderate 4-6) Aspirin 81 mg PO DAILY #20 tab.chew Docusate Sodium/Sennosides [Senna Plus] 1 tab PO BID #30 tablet Metoprolol Tartrate 25 mg PO BID #40 tablet Home Medications: Home Meds Sertraline [Zoloft] 50 mg PO DAILY 07/24/14 [History] Mag Hydrox/Aluminum Hyd/Simeth [Antacid Liquid] 20 ml PO Q4H PRN 09/14/19 [ History] Melatonin 3 mg PO BEDTIME PRN 09/14/19 [History] amLODIPine [Norvasc] 5 mg PO DAILY 09/14/19 [History] Acetaminophen [Tylenol] 650 mg PO Q4H PRN #30 tablet 09/16/19 [Rx] Acetaminophen/HYDROcodone [Martin 325-5 MG] 1 tab PO Q4H PRN #30 tablet 09/16/19 [Rx] Docusate Sodium/Sennosides [Senna Plus] 1 tab PO BID #30 tablet 09/16/19 [Rx] Aspirin 81 mg PO DAILY #20 tab.chew 09/17/19 [Rx] Metoprolol Tartrate 25 mg PO BID #40 tablet 09/17/19 [Rx] Oxygen Therapy Mode: Room Air Forms: ED Department Discharge Referrals: Claudy Mac MD [Primary Care Provider] - (Please call and schedule a follow up with Dr. Mac in 7-10 days. ) - Discharge Summary/Plan Comment DC Time >30 min.: Yes (45 mins ) - General Info Date of Service: 09/17/19 Admission Dx/Problem (Free Text: Admission Diagnosis/Problem Admission Diagnosis/Problem Fracture of pelvis Functional Status: Reports: Pain Controlled, Tolerating Diet, Ambulating, Urinating. Denies: New Symptoms - Review of Systems General: Reports: Weakness. Denies: Fever, Fatigue, Malaise, Chills HEENT: Reports: No Symptoms, Other (Very hard of hearing ). Denies: Headaches, Sore Throat Pulmonary: Reports: No Symptoms. Denies: Shortness of Breath, Cough, Sputum, Wheezing Cardiovascular: Reports: No Symptoms. Denies: Chest Pain, Palpitations, Edema Gastrointestinal: Reports: No Symptoms. Denies: Abdominal Pain, Constipation, Diarrhea, Nausea, Vomiting Genitourinary: Reports: No Symptoms. Denies: Pain Musculoskeletal: Reports: Joint Pain (right hip ) Skin: Reports: No Symptoms. Denies: Cyanosis Neurological: Reports: Difficulty Walking, Weakness, Gait Disturbance. Denies: Confusion Psychiatric: Reports: No Symptoms - Patient Data Vitals - Most Recent: Last Vital Signs Temp 97.9 F 09/17/19 05:10 Pulse 63 09/17/19 05:10 Resp 16 09/17/19 05:10 BP 139/96 H 09/17/19 05:10 Pulse Ox 90 L 09/17/19 05:10 Weight - Most Recent: 164 lb 14.4 oz I&O - Last 24 hours: Intake & Output 09/16/19 09/17/19 09/17/19 22:59 06:59 14:59 Intake Total 500 Output Total 550 Balance -50 Med Orders - Current: Current Medications Acetaminophen (Tylenol) 650 mg PO Q4H PRN PRN Reason: Pain (Mild 1-3)/fever Last Admin: 09/16/19 08:15 Dose: 650 mg Hydrocodone Bitart/Acetaminophen (Martin 325-5 Mg) 1 tab PO Q4H PRN PRN Reason: Pain (moderate 4-6) Last Admin: 09/17/19 06:45 Dose: 1 tab Al Hydroxide/Mg Hydroxide (Mag-Al Plus) 20 ml PO Q4H PRN PRN Reason: Heartburn Amlodipine Besylate (Norvasc) 5 mg PO DAILY [facility] Last Admin: 09/16/19 08:16 Dose: 5 mg Enoxaparin Sodium (Lovenox) 30 mg SUBCUT DAILY [facility] Last Admin: 09/16/19 08:18 Dose: 30 mg Hydromorphone HCl (Dilaudid) 0.25 mg IVPUSH Q2H PRN PRN Reason: Pain (severe 7-10) Last Admin: 09/15/19 12:12 Dose: 0.25 mg Loratadine (Claritin) 10 mg PO BEDTIME [facility] Last Admin: 09/16/19 20:44 Dose: 10 mg Melatonin (Melatonin) 3 mg PO BEDTIME PRN PRN Reason: Insomnia Last Admin: 09/15/19 20:45 Dose: 3 mg Metoprolol Tartrate (Lopressor) 50 mg PO BID [facility] Last Admin: 09/16/19 20:43 Dose: 50 mg Ondansetron HCl (Zofran Odt) 4 mg PO Q4H PRN PRN Reason: nausea, able to take PO Senna/Docusate Sodium (Senna Plus) 1 tab PO BID [facility] Last Admin: 09/16/19 20:44 Dose: 1 tab Sertraline HCl (Zoloft) 50 mg PO DAILY [facility] Last Admin: 09/16/19 08:16 Dose: 50 mg Discontinued Medications Acetaminophen (Tylenol) 650 mg PO NOW ONE Stop: 09/14/19 14:30 Last Admin: 09/14/19 14:44 Dose: 650 mg Hydromorphone HCl (Dilaudid) 0.25 mg IVPUSH ONETIME ONE Stop: 09/14/19 13:52 Last Admin: 09/14/19 14:00 Dose: 0.25 mg Senna/Docusate Sodium (Senna Plus) 1 tab PO BID PRN PRN Reason: Constipation - Exam Quality Assessment: Reports: DVT Prophylaxis General: Reports: Alert, Oriented, Cooperative, No Acute Distress HEENT: Reports: Pupils Equal, Pupils Reactive, Mucous Membr. Moist/[place] Neck: Reports: Supple, Trachea Midline Lungs: Reports: Clear to Auscultation, Normal Respiratory Effort Cardiovascular: Reports: Regular Rate, Regular Rhythm GI/Abdominal Exam: Normal Bowel Sounds, Soft, Non-Tender, No Distention, Other ( Stoma on right side of abdomen) (Female) Exam: Deferred Rectal (Female) Exam: Deferred Back Exam: Reports: Normal Inspection, Full Range of Motion Extremities: Normal Inspection, Non-Tender, Normal Capillary Refill, Pedal Edema (trace ) Skin: Reports: Warm, Dry, Intact Neurological: Reports: No New Focal Deficit Psy/Mental Status: Reports: Alert
[2019-09-17] MEDS ORDERED: Aspirin 81 MG Tab.EC PO SCH (09:00)
[2019-09-17] MEDS: Enoxaparin 30 MG/0.3 ML Syringe SUBCUT SCH (09:17)
[2019-09-17] MEDS: Sertraline 50 MG Tab PO SCH (09:18)
[2019-09-17 09:34] VITALS: BP 144/55
[2019-09-17] MEDS: amLODIPine 5 MG Tab PO SCH (09:34)
[2019-09-17 09:41] VITALS: PULSE 58
[2019-09-17] MEDS ORDERED: Metoprolol Tartrate 25 MG Tab PO SCH (09:45)
[2019-09-17] MEDS: Metoprolol Tartrate 50 MG Tab PO SCH (10:03)
== END 2019-09-17 11:08 | DRG 536 ==
LOC: JD.ED 11:50 → JD.MS 14:30
PROVIDERS: ADMIT Family Medicine; ATTEND Family Medicine
DX: S32.591A Other specified fracture of right pubis, initial encounter for closed fracture (principal); S09.90XA Unspecified injury of head, initial encounter; W18.30XA Fall on same level, unspecified, initial encounter; S32.501A Unspecified fracture of right pubis, initial encounter for closed fracture; W19.XXXA Unspecified fall, initial encounter; E78.00 Pure hypercholesterolemia, unspecified; Y92.129 Unspecified place in nursing home as the place of occurrence of the external cause; H91.90 Unspecified hearing loss, unspecified ear; N18.9 Chronic kidney disease, unspecified; I10 Essential (primary) hypertension; E78.5 Hyperlipidemia, unspecified; Z93.6 Other artificial openings of urinary tract status; I44.7 Left bundle-branch block, unspecified; M85.88 Other specified disorders of bone density and structure, other site; K21.9 Gastro-esophageal reflux disease without esophagitis; F03.90 Unspecified dementia, unspecified severity, without behavioral disturbance, psychotic disturbance, mood disturbance, and anxiety; F32.9 Major depressive disorder, single episode, unspecified; I12.9 Hypertensive chronic kidney disease with stage 1 through stage 4 chronic kidney disease, or unspecified chronic kidney disease; N18.3 Chronic kidney disease, stage 3 (moderate); Z79.899 Other long term (current) drug therapy; Z79.82 Long term (current) use of aspirin; G47.00 Insomnia, unspecified
CPT/HCPCS: 36415; 70450; 73502; 73700; 80053; 85025; 96374; 99285; J1170; 87641; 97110-GP; 97116-GP; 97162-GP; 97165-GO; 97530-GP; A9270-GY; J1650; U0002

== ENCOUNTER 2021-02-07 18:47 | Emergency (ER) | payer MEDICARE ==
[2021-02-07 19:04] VITALS: BP 205/67; PULSE 63
[2021-02-07] MEDS ORDERED: HYDROmorphone 0.5 MG/0.5 ML Syringe IVPUSH ONE (19:25)
--- NOTE | 2021-02-07 19:28 | EDM.PDOC ---
ED HPI GENERAL MEDICAL PROBLEM - General Chief Complaint: Back Pain or Injury Stated Complaint: [facility] Time Seen by Provider: 02/07/21 19:01 Source of Information: Reports: EMS, Long-Term Records, Provider History Limitations: Reports: Other (Patient very hard of hearing) - History of Present Illness INITIAL COMMENTS - FREE TEXT/NARRATIVE: The patient presents by [facility] for a fall. The patient fell on 02/03/21. She had low back pain and had x-rays after it happened that showed no fractures. She has not been doing well since the fall. Shed has pain and does not want to move. She was also found to be hypoxic in the ER with an oxygen saturations of 83%. She has pain to her neck, low back pelvis and left thigh. She has no chest pain or shortness of breath. She has no fever or cough. Onset: Sudden Duration: Day(s): (5) Location: Reports: Neck, Back, Lower Extremity, Left Quality: Reports: Sharp Severity: Moderate Improves with: Reports: Immobilization Worsens with: Reports: Movement Context: Reports: Trauma (fall) Associated Symptoms: Reports: No Other Symptoms Back Pain Score (Numeric/FACES): 8 - Related Data Allergies Allergy/AdvReac Type Severity Reaction Status Date / Time No Known Allergies Allergy Verified 02/07/21 19:05 Home Meds: Home Meds Sertraline [Zoloft] 50 mg PO DAILY 07/24/14 [History] Mag Hydrox/Aluminum Hyd/Simeth [Antacid Liquid] 20 ml PO Q4H PRN 09/14/19 [History] Melatonin 3 mg PO BEDTIME PRN 09/14/19 [History] amLODIPine [Norvasc] 5 mg PO DAILY 09/14/19 [History] Acetaminophen [Tylenol] 650 mg PO Q4H PRN #30 tablet 09/16/19 [Rx] Acetaminophen/HYDROcodone [Mcdade 325-5 MG] 1 tab PO Q4H PRN #30 tablet 09/16/19 [Rx] Docusate Sodium/Sennosides [Senna Plus] 1 tab PO BID #30 tablet 09/16/19 [Rx] Aspirin 81 mg PO DAILY #20 tab.chew 09/17/19 [Rx] Metoprolol Tartrate 25 mg PO BID #40 tablet 09/17/19 [Rx] Doxycycline [Vibra-Tabs] 100 mg PO Q12HR #14 tab 02/07/21 [Rx] Past Medical History HEENT History: Reports: Hard of Hearing Cardiovascular History: Reports: High Cholesterol, Hypertension Other Cardiovascular History: L BBB Respiratory History: Reports: Other (See Below) Other Respiratory History: hypoxemia Gastrointestinal History: Reports: GERD Genitourinary History: Reports: Chronic Renal Insuffiency Musculoskeletal History: Reports: Back Pain, Chronic, Other (See Below) Other Musculoskeletal History: weakness; current pelvic fracture Psychiatric History: Reports: Dementia, Depression Other Psychiatric History: insomnia Dermatologic History: Reports: Other (See Below) Other Dermatologic History: pruritic disorder - Past Surgical History GI Surgical History: Reports: Other (See Below) Other Female Surgeries/Procedures: urostomy Social & Family History - Family History Family Medical History: No Pertinent Family History - Tobacco Use Tobacco Use Status *Q: Never Tobacco User Second Hand Smoke Exposure: No - Caffeine Use Caffeine Use: Reports: Coffee, Soda ED ROS GENERAL - Review of Systems Review Of Systems: See Below Constitutional: Reports: No Symptoms HEENT: Reports: No Symptoms Respiratory: Reports: No Symptoms Cardiovascular: Reports: No Symptoms Endocrine: Reports: No Symptoms GI/Abdominal: Reports: No Symptoms : Reports: No Symptoms Musculoskeletal: Reports: Neck Pain, Back Pain, Leg Pain (left) ED EXAM,LOWER BACK PAIN/INJURY - Physical Exam Exam: See Below Exam Limited By: Other (Very hard of hearing) General Appearance: Alert, No Apparent Distress Ears: Normal External Exam Nose: Normal Inspection Head: Atraumatic, Normocephalic Neck: Tender Midline (mild) Respiratory/Chest: No Respiratory Distress, Lungs Clear, Normal Breath Sounds Cardiovascular: Regular Rate, Rhythm, No Edema, No Murmur GI/Abdominal: Soft, Non-Tender, No Organomegaly, No Mass Back Exam: Other (Pain upon palpation to the lower back more on the left) Extremities: Normal Inspection (Pain upon palpation to the left thigh) #1 Interpretation EKG Date: 02/07/21 Time: 20:29 Rhythm: NSR Rate (Beats/Min): 63 [place]: LAD-Left [place] Deviation P-Wave: Present QRS: LBBB ST-T: Normal QT: Normal Course - Vital Signs Last Recorded V/S: Last Vital Signs Temp 98.9 F 02/07/21 19:03 Pulse 63 02/07/21 19:03 Resp 20 02/07/21 19:03 BP 205/67 H 02/07/21 19:03 Pulse Ox 83 L 02/07/21 19:03 - Orders/Labs/Meds Orders: Active Orders 24 hr Category Date Time Status Cardiac Monitoring [RC] . DIRECTED Care 02/07/21 19:13 Active Oxygen Therapy [RC] PRN Care 02/07/21 19:14 Active Peripheral IV Care [RC] . DIRECTED Care 02/07/21 19:14 Active Ang Chest [CT] Stat Exams 02/07/21 22:00 Taken Sodium Chloride 0.9% [Normal Saline] 100 ml Med 02/07/21 22:30 Active IV ASDIRECTED Sodium Chloride 0.9% [Saline Flush] Med 02/07/21 19:13 Active 10 ml FLUSH ASDIRECTED PRN cefTRIAXone [Rocephin] 2 gm Med 02/07/21 23:18 Active Sodium Chloride 0.9% [Normal Saline] 100 ml IV ONETIME Peripheral IV Insertion Adult [OM.PC] Stat Oth 02/07/21 19:13 Ordered EKG 12 Lead [EK] Stat Ther 02/07/21 20:02 Ordered Medication Orders Sodium Chloride (Normal Saline) 100 mls @ 60 mls/min IV ASDIRECTED MARK Last Admin: 02/07/21 22:49 Dose: 60 mls/min Documented by: MJ Ceftriaxone Sodium 2 gm/ (Sodium Chloride) 100 mls @ 200 mls/hr IV ONETIME ONE Stop: 02/07/21 23:47 Sodium Chloride (Sodium Chloride 0.9% 10 Ml Syringe) 10 ml FLUSH ASDIRECTED PRN PRN Reason: Keep Vein Open Last Admin: 02/07/21 22:49 Dose: 10 ml Documented by: Admin: 02/07/21 19:40 Dose: 10 ml Documented by: FALLONMIC Labs: Laboratory Tests 02/07/21 02/07/21 02/07/21 Range/Units 19:30 19:30 19:30 WBC 10.20 H (3.98-10.04) K/mm3 RBC 4.94 (3.98-5.22) M/mm3 Hgb 15.4 (11.2-15.7) gm/dl Hct 47.5 H (34.1-44.9) % MCV 96.2 H (79.4-94.8) fl MCH 31.2 (25.6-32.2) pg MCHC 32.4 (32.2-35.5) g/dl RDW Std Deviation 47.5 H (36.4-46.3) fL Plt Count 190 (182-369) K/mm3 MPV 9.8 (9.4-12.3) fl Neut % (Auto) 70.2 (34.0-71.1) % Lymph % (Auto) 10.3 L (19.3-51.7) % [place] % (Auto) 13.1 H (4.7-12.5) % Eos % (Auto) 5.9 H (0.7-5.8) Baso % (Auto) 0.3 (0.1-1.2) % Neut # (Auto) 7.16 H (1.56-6.13) K/mm3 Lymph # (Auto) 1.05 L (1.18-3.74) K/mm3 [place] # (Auto) 1.34 H (0.24-0.36) K/mm3 Eos # (Auto) 0.60 H (0.04-0.36) K/mm3 Baso # (Auto) 0.03 (0.01-0.08) K/mm3 PT 10.3 (9.7-12.0) SECONDS INR 0.93 APTT 24.8 (21.7-31.4) SECONDS D-Dimer, Quantitative (0.19-0.50) mg/L Sodium 137 (136-145) mEq/L Potassium 4.1 (3.5-5.1) mEq/L Chloride 103 (98-107) mEq/L Carbon Dioxide 25 (21-32) mEq/L Anion Gap 13.1 (5-15) BUN 27 H (7-18) mg/dL Creatinine 1.2 H (0.55-1.02) mg/dL Est Cr Clr Drug Dosing 28.60 mL/min Estimated GFR (MDRD) 42 (>60) mL/min BUN/Creatinine Ratio 22.5 H (14-18) Glucose 122 H (70-99) mg/dL Calcium 10.1 (8.5-10.1) mg/dL Total Bilirubin 0.6 (0.2-1.0) mg/dL AST 28 (15-37) U/L ALT 27 (14-59) U/L Alkaline Phosphatase 101 (46-116) U/L Troponin I (0.00-0.056) ng/mL C-Reactive Protein 6.7 H* (<1.0) mg/dL NT-Pro-B Natriuret Pep (0-450) pg/mL Total Protein 7.3 (6.4-8.2) g/dl Albumin 2.9 L (3.4-5.0) g/dl Globulin 4.4 gm/dL Albumin/Globulin Ratio 0.7 L (1-2) SARS-CoV-2 RNA (MOLLY) (NEGATIVE) 02/07/21 02/07/21 02/07/21 Range/Units 19:30 19:30 19:30 WBC (3.98-10.04) K/mm3 RBC (3.98-5.22) M/mm3 Hgb (11.2-15.7) gm/dl Hct (34.1-44.9) % MCV (79.4-94.8) fl MCH (25.6-32.2) pg MCHC (32.2-35.5) g/dl RDW Std Deviation (36.4-46.3) fL Plt Count (182-369) K/mm3 MPV (9.4-12.3) fl Neut % (Auto) (34.0-71.1) % Lymph % (Auto) (19.3-51.7) % [place] % (Auto) (4.7-12.5) % Eos % (Auto) (0.7-5.8) Baso % (Auto) (0.1-1.2) % Neut # (Auto) (1.56-6.13) K/mm3 Lymph # (Auto) (1.18-3.74) K/mm3 [place] # (Auto) (0.24-0.36) K/mm3 Eos # (Auto) (0.04-0.36) K/mm3 Baso # (Auto) (0.01-0.08) K/mm3 PT (9.7-12.0) SECONDS INR APTT (21.7-31.4) SECONDS D-Dimer, Quantitative 4.65 H (0.19-0.50) mg/L Sodium (136-145) mEq/L Potassium (3.5-5.1) mEq/L Chloride (98-107) mEq/L Carbon Dioxide (21-32) mEq/L Anion Gap (5-15) BUN (7-18) mg/dL Creatinine (0.55-1.02) mg/dL Est Cr Clr Drug Dosing mL/min Estimated GFR (MDRD) (>60) mL/min BUN/Creatinine Ratio (14-18) Glucose (70-99) mg/dL Calcium (8.5-10.1) mg/dL Total Bilirubin (0.2-1.0) mg/dL AST (15-37) U/L ALT (14-59) U/L Alkaline Phosphatase (46-116) U/L Troponin I < 0.017 (0.00-0.056) ng/mL C-Reactive Protein (<1.0) mg/dL NT-Pro-B Natriuret Pep 839 H (0-450) pg/mL Total Protein (6.4-8.2) g/dl Albumin (3.4-5.0) g/dl Globulin gm/dL Albumin/Globulin Ratio (1-2) SARS-CoV-2 RNA (MOLLY) (NEGATIVE) 02/07/21 Range/Units 19:45 WBC (3.98-10.04) K/mm3 RBC (3.98-5.22) M/mm3 Hgb (11.2-15.7) gm/dl Hct (34.1-44.9) % MCV (79.4-94.8) fl MCH (25.6-32.2) pg MCHC (32.2-35.5) g/dl RDW Std Deviation (36.4-46.3) fL Plt Count (182-369) K/mm3 MPV (9.4-12.3) fl Neut % (Auto) (34.0-71.1) % Lymph % (Auto) (19.3-51.7) % [place] % (Auto) (4.7-12.5) % Eos % (Auto) (0.7-5.8) Baso % (Auto) (0.1-1.2) % Neut # (Auto) (1.56-6.13) K/mm3 Lymph # (Auto) (1.18-3.74) K/mm3 [place] # (Auto) (0.24-0.36) K/mm3 Eos # (Auto) (0.04-0.36) K/mm3 Baso # (Auto) (0.01-0.08) K/mm3 PT (9.7-12.0) SECONDS INR APTT (21.7-31.4) SECONDS D-Dimer, Quantitative (0.19-0.50) mg/L Sodium (136-145) mEq/L Potassium (3.5-5.1) mEq/L Chloride (98-107) mEq/L Carbon Dioxide (21-32) mEq/L Anion Gap (5-15) BUN (7-18) mg/dL Creatinine (0.55-1.02) mg/dL Est Cr Clr Drug Dosing mL/min Estimated GFR (MDRD) (>60) mL/min BUN/Creatinine Ratio (14-18) Glucose (70-99) mg/dL Calcium (8.5-10.1) mg/dL Total Bilirubin (0.2-1.0) mg/dL AST (15-37) U/L ALT (14-59) U/L Alkaline Phosphatase (46-116) U/L Troponin I (0.00-0.056) ng/mL C-Reactive Protein (<1.0) mg/dL NT-Pro-B Natriuret Pep (0-450) pg/mL Total Protein (6.4-8.2) g/dl Albumin (3.4-5.0) g/dl Globulin gm/dL Albumin/Globulin Ratio (1-2) SARS-CoV-2 RNA (MOLLY) Negative (NEGATIVE) Meds: Medications Generic Name Dose Route Start Last Admin Trade Name Freq PRN Reason Stop Dose Admin Sodium Chloride 100 mls @ 60 mls/min 02/07/21 22:30 02/07/21 22:49 Normal Saline IV 60 mls/min ASDIRECTED MARK Administration Ceftriaxone Sodium 2 gm/ 100 mls @ 200 mls/hr 02/07/21 23:18 Sodium Chloride IV 02/07/21 23:47 ONETIME ONE Sodium Chloride 10 ml 02/07/21 19:13 02/07/21 22:49 Sodium Chloride 0.9% 10 Ml Syringe FLUSH 10 ml ASDIRECTED PRN Administration Keep Vein Open Discontinued Medications Generic Name Dose Route Start Last Admin Trade Name Rylee PRN Reason Stop Dose Admin Hydromorphone HCl 0.25 mg 02/07/21 19:25 02/07/21 19:40 Hydromorphone 0.5 Mg/0.5 Ml Syringe IVPUSH 02/07/21 19:26 0.25 mg ONETIME ONE Administration Iopamidol 100 ml 02/07/21 22:25 02/07/21 22:49 Iopamidol 755 Mg/Ml 100 Ml Bottle IVPUSH 02/07/21 22:26 100 ml ONETIME ONE Administration Sodium Chloride 10 ml 02/07/21 22:25 02/07/21 23:08 Sodium Chloride 0.9% 10 Ml Sdv FLUSH 02/07/21 22:26 10 ml ONETIME ONE Administration - Re-Assessments/Exams Free Text/Narrative Re-Assessment/Exam: 02/07/21 19:27 She was hypooxic so I ordered oxygen COVID 19 swab, IV saline lock, dilaudid 0.25mg IV, labs, CT of her head, cervical spine, chest, abdomen and pelvis. I also ordered an x-ray of her left femur. 02/07/21 21:48 I ordered an EKG and is shows a LBBB. Her WBC was elevated at 10.2. Her PT and PTT look good. Her creatinine was slightly elevated at 1.2. Her glucose was elevated at 122. Her troponin was negative. Her CRP was elevated at 6.7. Her BNP was 839. She is COVID 19 negative. 02/07/21 23:19 The x-ray of her left femur shows degenerative change. Nothing acute is a ppreciated on left femur study. 02/07/21 23:[address] of her cervical spine shows degenerative change. Scoliosis is noted. No acute fracture is seen. The CT of her head shows hypoplastic left maxillary sinus containing a small air fluid level. Near complete opacification of the right sphenoid sinus is seen. Senescent changes. No acute intracranial abnormality is appreciated. The CT of her chest shows findings believed to be incidental. Nothing acute is appreciated on CT study of the chest. The CT of her abdomen and pelvis shows prior surgery within the abdomen with artificial bladder. Nothing acute is appreciated. I do not have a reason for her being hypoxic. I have added a D-dimer and it was high over 4. I ordered a CT angio of her chest. The CT shows no evidence of pulmonary embolism. Cardiomegaly without evidence of acute CHF. Bilateral lower lobe consolidation, left greater then right. Consider infectious or aspiration pneumonia. Severe compression fracture deformity at T12, probably chronic. If further evaluation of the spine is clinically warranted consider MRI. I ordered rocephin 2 grams IV. I will get her on some doxycycline at the longterm and oxygen PRN. Departure - Departure Time of Disposition: 23:55 Disposition: DC/Tfer to [facility] 64 Condition: Fair Clinical Impression: Hypoxia Fall Qualifiers: Encounter type: initial encounter Qualified Code(s): W19.XXXA - Unspecified fall, initial encounter Compression fracture of T12 vertebra Qualifiers: Encounter type: initial encounter Qualified Code(s): S22.080A - Wedge compression fracture of T11-T12 vertebra, initial encounter for closed fracture Pneumonia Qualifiers: Pneumonia type: due to unspecified organism Laterality: bilateral Lung location: lower lobe of lung Qualified Code(s): J18.9 - Pneumonia, unspecified organism - Discharge Information *PRESCRIPTION DRUG MONITORING PROGRAM REVIEWED*: Not Applicable *COPY OF PRESCRIPTION DRUG MONITORING REPORT IN PATIENT ELVIRA: Not Applicable Prescriptions: Doxycycline [Vibra-Tabs] 100 mg PO Q12HR #14 tab Referrals: PCP,None [Primary Care Provider] - Forms: ED Department Discharge Additional Instructions: Take the doxycycline 2 times per day for 2 days. Oxygen 2L by nasal cannula to keep oxygen saturations above 90%. Keep taking the rest of your medications as prescribed. Please return if you are worse. Sepsis Event Note (ED) - Focused Exam Vital Signs: Vital Signs Temp Pulse Resp BP Pulse Ox 02/07/21 19:03 98.9 F 63 20 205/67 H 83 L - My Orders Last 24 Hours: My Active Orders 02/07/21 19:13 Cardiac Monitoring [RC] . DIRECTED Sodium Chloride 0.9% [Saline Flush] 10 ml FLUSH ASDIRECTED PRN Peripheral IV Insertion Adult [OM.PC] Stat 02/07/21 19:14 Oxygen Therapy [RC] PRN Peripheral IV Care [RC] . DIRECTED 02/07/21 20:02 EKG 12 Lead [EK] Stat 02/07/21 22:00 Ang Chest [CT] Stat 02/07/21 22:30 Sodium Chloride 0.9% [Normal Saline] 100 ml IV ASDIRECTED 02/07/21 23:18 cefTRIAXone [Rocephin] 2 gm Sodium Chloride 0.9% [Normal Saline] 100 ml IV ONETIME - Assessment/Plan Last 24 Hours: My Active Orders 02/07/21 19:13 Cardiac Monitoring [RC] . DIRECTED Sodium Chloride 0.9% [Saline Flush] 10 ml FLUSH ASDIRECTED PRN Peripheral IV Insertion Adult [OM.PC] Stat 02/07/21 19:14 Oxygen Therapy [RC] PRN Peripheral IV Care [RC] . DIRECTED 02/07/21 20:02 EKG 12 Lead [EK] Stat 02/07/21 22:00 Ang Chest [CT] Stat 02/07/21 22:30 Sodium Chloride 0.9% [Normal Saline] 100 ml IV ASDIRECTED 02/07/21 23:18 cefTRIAXone [Rocephin] 2 gm Sodium Chloride 0.9% [Normal Saline] 100 ml IV ONETIME
[2021-02-07] MEDS: Sodium Chloride 0.9% 10 ML Syringe FLUSH PRN ×2 (19:40→22:49)
--- NOTE | 2021-02-07 20:58 | CT ---
Head CT Technique: Multiple axial sections through the brain were obtained. Intravenous contrast was not utilized. Reconstructed coronal and sagittal images were obtained. Comparison: Prior head CT study of 09/14/19. Findings: Ventricles along with basal cisterns and sulci over the convexities are mildly prominent. Mild diminished density is noted within the periventricular white matter which is compatible with small vessel ischemic demyelination change. 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 Minimal basal ganglia calcification is noted. There is no evidence of intracranial hemorrhage being seen. No midline shift or mass-effect is seen. Bone window settings were reviewed. There appears to be a small amount of fluid within a hypoplastic left maxillary sinus. Diffuse opacification is noted of the right sphenoid sinus. Mastoid sinuses are clear. No acute calvarial abnormality is appreciated. Impression: 1. 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 Near complete opacification of the right sphenoid sinus is seen. 2. Senescent change as noted above. 3. No acute intracranial abnormality is appreciated. Diagnostic code #2
--- NOTE | 2021-02-07 20:58 | CT ---
CT chest Technique: Multiple axial sections were obtained through the chest. Intravenous contrast was not utilized. Reconstructed coronal and sagittal images were obtained. Comparison: No prior chest CT is available, prior chest x-ray of 07/24/14 is available Findings: Thoracic aorta shows atherosclerotic change with no aneurysm. Small lymph nodes are seen within the mediastinum which are felt to be within normal limits. No pericardial thickening is seen. Heart is mildly enlarged. Lungs show posterior dependent atelectasis. Lungs show no acute parenchymal change. Bone window settings were reviewed which show mild scattered compression deformities within the spine which are believed to be old. Scattered old left-sided rib fractures are also noted which appear healed. No acute osseous abnormality is appreciated. Impression: 1. Findings believed to be incidental as described above. 2. Nothing acute is appreciated on CT study of the chest. Diagnostic code #2 CT abdomen and pelvis Technique: Multiple axial sections were obtained from above the dome of the diaphragm inferiorly through the pubic symphysis. Intravenous and oral contrast were not utilized. Reconstructed coronal and sagittal images were obtained. Comparison: Prior CT abdomen exam of 04/13/09. Findings: Noncontrast appearance of the liver appears within normal limits. Small calcified gallstone is seen within the gallbladder. Spleen size is normal. Small calcification is seen next to the spleen which is unchanged from prior exam and is incidental. Adrenal glands show no nodule. Cyst is noted within the left kidney measuring 3.7 cm in size. Extrarenal pelvis is noted on the right side with surgery within the distal ureters to an artificial bladder. Abdominal aorta shows atherosclerotic change with no aneurysm. Atherosclerotic change continues into the iliac vessels. Inferior vena cava filter is noted. There is an ostomy noted within the right lower abdomen. The ostomy contains a loop of colon. Ostomy drains the artificial bladder. Diverticuli are seen within the sigmoid colon with no inflammatory change. No pelvic mass or adenopathy is noted. Old inferior right pubic ramus fracture is noted. Degenerative change is seen within both sacroiliac joints. Compression deformity is noted within L2 which appears to be old. Scattered degenerative change is seen within the spine. No definite acute osseous abnormality is seen. Impression: 1. Prior surgery within the abdomen with artificial bladder. 2. Other findings as described above. 3. Nothing acute is appreciated. Diagnostic code #2
--- NOTE | 2021-02-07 21:07 | CT ---
CT cervical spine Technique: Multiple axial sections were obtained from above C1 inferiorly to below T4. Reconstructed coronal and sagittal images were obtained. Comparison: No prior cervical spine imaging is available. Findings: Degenerative change is noted between the dens and anterior arch of C1. Vertebral body heights are maintained. Disc spaces are fairly well preserved. Minimal spondylolisthesis is seen at C4-5 by several mm which is due to degenerative apophyseal change. Mild spondylolisthesis is also noted at C5-6 by several mm which is also due to degenerative apophyseal change. Other degenerative apophyseal change is seen throughout the cervical and upper thoracic spine. Posterior osteophytes and disc calcifications are noted at C2-3. Other diffuse posterior disc bulges are noted. There is mild central canal stenosis noted at C6-7. Neural foramina show mild narrowing on the left side at C5-6. Moderate narrowing is noted bilaterally at C4-5. Moderate to severe left-sided neural foraminal stenosis is noted at C3-4. No acute fracture is seen. Mild scoliosis is noted. Degenerative change is noted within both shoulders, worse on the left side. Impression: 1. Degenerative change as described above. Scoliosis is noted. 2. No acute fracture is seen. Diagnostic code #2
--- NOTE | 2021-02-07 21:07 | CR ---
Left femur: AP and lateral views of the left femur were obtained. Comparison: No prior femur study is available. Joint space narrowing is seen within the medial left knee. Osteophytes are also noted off the medial left knee. There is fairly severe joint space narrowing noted within the left hip. Surgical clips are partially visualized within the left pelvis. No acute fracture or other bony abnormality is seen. Impression: 1. Degenerative change as noted above. 2. Nothing acute is appreciated on left femur study. Diagnostic code #2
[2021-02-07] MEDS ORDERED: Iopamidol 755 Mg/ML 100 ML Bottle IVPUSH ONE (22:25)
[2021-02-07] MEDS ORDERED: Sodium Chloride 0.9% 10 ML SDV FLUSH ONE (22:25)
[2021-02-07] MEDS ORDERED: Sodium Chloride 0.9% 100 ML IV SCH (22:30)
[2021-02-07] MEDS ORDERED: cefTRIAXone 2 GM in Sodium Chloride 0.9% 100 ML IV ONE (23:18)
--- NOTE | 2021-02-08 07:50 | CT ---
CT chest Technique: Multiple axial sections through the chest were obtained. Intravenous contrast was utilized. Study has been performed as a pulmonary angiogram protocol. Comparison: Prior noncontrast chest CT study of 02/07/21, 7:56 PM. Findings: Pulmonary arteries are well opacified. No filling defects are seen to indicate pulmonary embolism. Thoracic aorta shows atherosclerotic calcification. No aneurysm is seen. Small lymph nodes are noted which are believed to be within normal limits. No pericardial thickening is seen. Small hiatal hernia is noted. Single gallstone is seen within the gallbladder. Cyst is noted within the left kidney. Patchy areas of increased density are seen posteriorly within both inferior lungs. These findings have increased from prior study raising the possibility of aspiration or slight worsening pneumonia. Lungs otherwise are clear. Bone window settings were reviewed which show old healed left-sided rib fractures. Compression deformities are noted within the spine most severe at T7. These are felt to be old. Impression: 1. No findings of pulmonary embolism. 2. Slight increasing density posteriorly within both inferior lungs raising the possibility of worsening areas of atelectasis, aspiration pneumonia or regular pneumonia. 3. Heart is enlarged. 4. Compression deformities within the spine which are most likely old. Diagnostic code #3 I agree with preliminary report from [facility] finalized on 02/08/21, 12:13 AM CDT, code 1
== END 2021-02-08 00:50 ==
LOC: JD.ED 18:47
DX: S22.080A Wedge compression fracture of T11-T12 vertebra, initial encounter for closed fracture (principal); J18.9 Pneumonia, unspecified organism; E78.00 Pure hypercholesterolemia, unspecified; I12.9 Hypertensive chronic kidney disease with stage 1 through stage 4 chronic kidney disease, or unspecified chronic kidney disease; N18.9 Chronic kidney disease, unspecified; Z79.82 Long term (current) use of aspirin; Z79.899 Other long term (current) drug therapy; Z20.822 Contact with and (suspected) exposure to COVID-19; W18.39XA Other fall on same level, initial encounter
CPT/HCPCS: 36415; 70450; 71250; 71275; 72125; 73552; 74176; 80053; 83880; 84484; 85025; 85379; 85610; 85730; 86140; 87804; 93005; 96365; 96375; 99284; J0696; J1170; Q9967; U0002